=== PATIENT | female | born 1960 | race Caucasian/White ===

== ENCOUNTER 2016-07-03 00:20 | Emergency (ER) | payer MEDICARE, OTHER ==
[~2016-07-03] VITALS: Ht 157.5 cm; Wt 65.0 kg
[~2016-07-03 00:20] MED LIST: ABIL5TAB6 PO; BENZ2 PO; PAXI30TA7 PO
[2016-07-03 00:30] VITALS: BP 162/79; PULSE 107; RESP 20; TEMP 99.8; O2SAT 95
--- NOTE | 2016-07-03 01:40 | PD ---
HPI Chief Complaint: Abdominal Pain Time Seen by Provider: 01:32 Travel History International Travel<30 days: No Contact w/Intl Traveler<30days: No Traveled to known affect area: No History of Present Illness HPI 56-year-old female with history of schizoaffective disorder, comprehensive complaints of abdominal "fullness". Patient denies any true pain. She does state that she ate pizza from [address] and shortly thereafter had 3 large bowel movements. She denies any fevers, chills. She denies any dysuria, urgency, frequency. When asked if she's had anything like this before, patient reports that she had something similar 2 years ago. She states that they did lots of tests and discharge her home. Patient also reports tremors. She states when she had this pain 2 years ago she felt tremors then. She denies being sexually active. There are no other complaints time my examination. PFSH Past Medical History Anemia: Yes Anxiety: Yes Depression: Yes Cancer: No Cardiovascular Problems: No Diabetes: No Diminished Hearing: No Headaches: No Hypertension: Yes Implanted Vascular Access Dvce: No Psychiatric: Yes (Prior admissions in outpatient [place]. and HBS) Reproductive: Yes (HAS A LARGE UTERINE FIBROID) Immunizations Current: Yes Schizophrenia: Yes Seizures: No ?: Not Menopausal: Yes : 1 Miscarriage: 1 Past Surgical History Gynecologic Surgery: Yes (FIBROIDS REMOVED) Social History Alcohol Use: No Tobacco Use: No Substance Use: No Allergies-Medications (Allergen,Severity, Reaction): Coded Allergies: No Known Allergies (Unverified , 07/03/16) Per [facility] in [place], [place]. Reported Meds & Prescriptions Reported Meds & Active Scripts Active No Active Prescriptions or Reported Medications Review of Systems Except as stated in HPI: all other systems reviewed are Neg General / Constitutional: No: Fever, Chills HENT: No: Headaches, Lightheadedness Cardiovascular: No: Chest Pain or Discomfort Respiratory: No: Cough, Shortness of Breath Gastrointestinal: Positive: Nausea, Vomiting, Abdominal Pain (described as "full sensation".), No: Diarrhea Genitourinary: Positive: Urgency, Frequency, Dysuria Musculoskeletal: No: Weakness Neurologic: No: Weakness, Dizziness Psychiatric: No: Anxiety (denies), Depression (denies), Substance Abuse (denies ) Physical Exam Narrative GENERAL: Well-nourished, well-developed patient. SKIN: Warm and dry. HEAD: Normocephalic/atraumatic. EYES: No injection or drainage. NECK: Supple, trachea midline. No JVD or lymphadenopathy. CARDIOVASCULAR: Regular rate and rhythm without murmurs, gallops, or rubs. RESPIRATORY: Breath sounds equal bilaterally. No accessory muscle use. GASTROINTESTINAL: Abdomen soft, non-tender, nondistended. When asked where the discomfort was, she points to her mid abdomen. There was no pain elicited on palpation. She had no rebound or guarding. There are no pulsatile masses or abnormal findings on exam. MUSCULOSKELETAL: No cyanosis, or edema. NEUROLOGICAL: Awake and alert. Cranial nerves II through XII intact. Motor grossly within normal limits. Five out of 5 muscle strength in all muscle groups. Normal speech. The patient was tremulous however when engaged in conversation she would not shake. Data Data Last Documented VS Vital Signs Date Time Temp Pulse Resp B/P Pulse Ox O2 Delivery O2 Flow Rate FiO2 07/03/16 00:30 99.8 107 20 162/79 95 Orders Lorazepam Inj (Ativan Inj) (07/03/16 01:45) Complete Blood Count With Diff (07/03/16 01:34) Comprehensive Metabolic Panel (07/03/16 01:34) Lipase (07/03/16 01:34) Urinalysis - C+S If Indicated (07/03/16 01:34) Iv Access Insert/Monitor (07/03/16 01:34) Ecg Monitoring (07/03/16 01:34) Oximetry (07/03/16 01:34) Sodium Chloride 0.9% Flush (Ns Flush) (07/03/16 01:45) Dicyclomine Inj (Bentyl Inj) (07/03/16 01:45) Ct Abd/Pel W Iv Contrast(Rout) (07/03/16 02:31) Oral Contrast - Adult (07/03/16 02:39) Diatrizoate Liq ( Gastroview Liq) (07/03/16 03:11) Diatrizoate Liq ( Gastroalisha Liq) (07/03/16 03:11) Iohexol 350 Inj (Omnipaque 350 Inj) (07/03/16 04:12) Labs Laboratory Tests Test 07/03/16 01:00 White Blood Count 17.0 TH/MM3 Red Blood Count 4.46 MIL/MM3 Hemoglobin 13.0 GM/DL Hematocrit 38.2 % Mean Corpuscular Volume 85.5 FL Mean Corpuscular Hemoglobin 29.2 PG Mean Corpuscular Hemoglobin 34.1 % Concent Red Cell Distribution Width 13.4 % Platelet Count 318 TH/MM3 Mean Platelet Volume 7.6 FL Neutrophils (%) (Auto) 86.4 % Lymphocytes (%) (Auto) 5.7 % Monocytes (%) (Auto) 7.3 % Eosinophils (%) (Auto) 0.4 % Basophils (%) (Auto) 0.2 % Neutrophils # (Auto) 14.7 TH/MM3 Lymphocytes # (Auto) 1.0 TH/MM3 Monocytes # (Auto) 1.2 TH/MM3 Eosinophils # (Auto) 0.1 TH/MM3 Basophils # (Auto) 0.0 TH/MM3 CBC Comment DIFF FINAL Differential Comment Urine Color LIGHT-YELLOW Urine Turbidity CLEAR Urine pH 6.5 Urine Specific [place] 1.008 Urine Protein NEG mg/dL Urine Glucose (UA) NEG mg/dL Urine Ketones NEG mg/dL Urine Occult Blood NEG Urine Nitrite NEG Urine Bilirubin NEG Urine Urobilinogen LESS THAN 2.0 MG/DL Urine Leukocyte Esterase SMALL Urine RBC 1 /hpf Urine WBC 7 /hpf Urine Squamous Epithelial 1 /hpf Cells Urine Transitional Epithelial <1 /hpf Cells Urine Renal Epithelial Cells <1 /hpf Urine Mucus FEW /lpf Microscopic Urinalysis Comment CULT NOT INDICATED Sodium Level 137 MEQ/L Potassium Level 4.2 MEQ/L Chloride Level 102 MEQ/L Carbon Dioxide Level 26.1 MEQ/L Anion Gap 9 MEQ/L Blood Urea Nitrogen 23 MG/DL Creatinine 1.01 MG/DL Estimat Glomerular Filtration 57 ML/MIN Rate Random Glucose 106 MG/DL Calcium Level 8.8 MG/DL Total Bilirubin 0.3 MG/DL Aspartate Amino Transf 27 U/L (AST/SGOT) Alanine Aminotransferase 30 U/L (ALT/SGPT) Alkaline Phosphatase 83 U/L Total Protein 7.5 GM/DL Albumin 4.0 GM/DL Lipase 144 U/L MDM Medical Decision Making Medical Screen Exam Complete: Yes Emergency Medical Condition: Yes Medical Record Reviewed: Yes Interpretation(s) Last 24 hours Impressions Abdomen/Pelvis CT 07/03/16 0231 Signed Impressions: Service Date/Time: June 04:10 - CONCLUSION: 1. No evidence of acute abdominal or pelvic process. No masses are identified. 2. Massively enlarged fibroid uterus similar to the prior study 3. Bladder distention. 4. Small pericardial effusion 5. Constipation Roberto Carlos Judd MD Differential Diagnosis Foodborne illness versus pancreatitis versus diverticulitis Narrative Course 56-year-old female with history of schizoaffective disorder, presents today with complaints of abdominal pain. The patient had an elevated white blood cell count. CT scan shows an enlarged fibroid uterus. She has a small pericardial effusion. Urinalysis showed no evidence of UTI. There was also constipation noted. The findings were discussed the patient and she was instructed to follow up with a primary care physician for further evaluation of the pericardial effusion. She is also instructed she likely need to see a BUREAU DIRECTOR physician for her fibroid uterus. Diagnosis Primary Impression: Fibroid uterus Additional Impressions: small pericardial effusion Constipation Additional Instructions: Follow up with a primary care physician for your fibroid uterus and small pericardial effusion. Scripts No Active Prescriptions or Reported Meds Disposition: 01 DISCHARGE HOME Condition: Stable Angel Mary MD Jul 03, 2016 01:40
[2016-07-03] MEDS ORDERED: SODIUM CHLORIDE 0.9% FLUSH 5 ML FLUSH IVF PRN (01:45)
[2016-07-03] MEDS ORDERED: DICYCLOMINE HCL 20 MG/2 ML VIAL IM ONE (01:45)
[2016-07-03] MEDS ORDERED: LORazepam 2 MG/ML VIAL IV PUSH ONE (01:45)
[2016-07-03 01:58] LABS: AUTOMATED NEUTROPHIL # 14.7 TH/MM3 (1.8-7.7); BASOPHIL % 0.2 % (0.0-2.0); EOSINOPHIL # 0.1 TH/MM3 (0-0.4); EOSINOPHIL % 0.4 % (0.0-4.0); HEMATOCRIT 38.2 % (35.0-46.0); HEMO FLAGS DIFF FINAL; LYMPH % 5.7 % (9.0-44.0); MEAN CELL VOLUME 85.5 FL (80.0-100.0); MEAN CORPUSCULAR HEMOGLOBIN 29.2 PG (27.0-34.0); MEAN CORPUSCULAR HGB CONC 34.1 % (32.0-36.0); MONO % 7.3 % (0.0-8.0); NEUT % 86.4 % (16.0-70.0); PLATELET COUNT 318 TH/MM3 (150-450); RED BLOOD COUNT 4.46 MIL/MM3 (4.00-5.30); RED CELL DISTRIBUTION WIDTH 13.4 % (11.6-17.2)
[2016-07-03 02:08] LABS: BLOOD, URINE NEG (NEG); COMMENT (UR) CULT NOT INDICATED; CULTURE IF INDICATED CULT NOT INDICATED; GLUCOSE,URINE NEG (NEG); KETONE, URINE NEG (NEG); MUCUS URINE FEW /lpf (OCC); NITRITE,URINE NEG (NEG); PH, URINE 6.5 (5.0-8.5); RENAL EPITHELIAL CELLS <1 /hpf; SQUAMOUS EPITHELIAL CELL URINE 1 /hpf (0-5); TRANSITIONAL EPI CELLS, URINE <1 /hpf; URINE COLOR LIGHT-YELLOW (YELLW/STRAW)
[2016-07-03 02:13] LABS: ALT (GPT) 30 U/L (10-53); ANION GAP 9 MEQ/L (5-15); AST (GOT) 27 U/L (15-37); BICARBONATE 26.1 MEQ/L (21.0-32.0); BLOOD UREA NITROGEN 23 MG/DL (7-18); CHLORIDE 102 MEQ/L (98-107); GLOMERULAR FILTRATION RATE 57 ML/MIN (>89); POTASSIUM 4.2 MEQ/L (3.5-5.1); SODIUM (NA) 137 MEQ/L (136-145)
[2016-07-03 02:16] LABS: ALKALINE PHOSPHATASE 83 U/L (45-117); TOTAL BILIRUBIN ADULT 0.3 MG/DL (0.2-1.0)
[2016-07-03] MEDS ORDERED: DIATRIZOATE MEGLUM/DIATRIZOATE SOD 9 ML CUP ONE ×2 (03:11)
[2016-07-03] MEDS ORDERED: IOHEXOL 350 MG/ML 10 ML VIAL (for RAD DIAG) IV ONE (04:12)
--- NOTE | 2016-07-03 04:41 | RADRPT ---
EXAM DATE/TIME: 07/03/2016 04:10 [facility] COMPARISON: CT ABDOMEN & PELVIS W CONTRAST, December 01, 2013, 8:39. INDICATIONS : Abdomen pain with tremors. IV CONTRAST: 70 cc Omnipaque 350 (iohexol) IV ORAL CONTRAST: Prescribed oral contrast ingested. RADIATION DOSE: 6.85 CTDIvol (mGy) MEDICAL HISTORY : Fibroids SURGICAL HISTORY : None. ENCOUNTER: Initial ACUITY: 1 day PAIN SCALE: 5/10 LOCATION: Bilateral abdomen TECHNIQUE: Volumetric scanning of the abdomen and pelvis was performed. Using automated exposure control and ad justment of the mA and/or kV according to patient size, radiation dose was kept as low as reasonably achievable to obtain optimal diagnostic quality images. FINDINGS: Examination of the lung bases demonstrates no abnormality. No pleural fluid is identified. No pulmona ry nodules are present. The liver and spleen are free of focal defects. The gallbladder and pancreas demonstrate no abnormality. The adrenal glands are normal. The kidneys demonstrate no evidence of toma id renal mass or hydronephrosis. No free fluid or abdominal masses are identified. No para-aortic mulu nopathy is seen. There is a massively enlarged uterus with heterogeneous calcification characteristic of fibroids efraín uring 20 x 11.8 x 8.9 CM. There is a large amount of fecal material throughout the colon consistent w ith constipation. The bladder is distended unchanged from the prior study. CONCLUSION: 1. No evidence of acute abdominal or pelvic process. No masses are identified. 2. Massively enlarged fibroid uterus similar to the prior study 3. Bladder distention. 4. Small pericardial effusion 5. Constipation Roberto Carlos Judd MD on July 03, 2016 at 4:36 Board Certified Radiologist. This report was verified electronically.
[2016-07-03 05:00] VITALS: BP 142/87; PULSE 88; RESP 18; O2SAT 98
== END 2016-07-03 07:08 | disposition home or self-care (01) ==
LOC: NEPE 00:20
DX: D25.9 Leiomyoma of uterus, unspecified (principal); I31.3 Pericardial effusion (noninflammatory); K59.00 Constipation, unspecified; F25.9 Schizoaffective disorder, unspecified
CPT/HCPCS: 74177; 80053; 81001; 83690; 85025; 96372; 96374; 99284; J0500; J2060; Q9963; Q9967

== ENCOUNTER 2016-07-04 12:19 | Emergency (ER) | payer MEDICARE ==
[~2016-07-04] VITALS: Ht 167.6 cm; Wt 68.0 kg
[2016-07-04 12:22] VITALS: BP 156/85; PULSE 101; RESP 17; TEMP 97.9; O2SAT 95
== END 2016-07-04 14:59 | disposition left against medical advice (07) ==
LOC: NED 12:19
DX: R68.89 Other general symptoms and signs (principal)
CPT/HCPCS: 99281

== ENCOUNTER 2016-07-04 17:16 | Emergency (ER) | payer MEDICARE ==
[~2016-07-04] VITALS: Ht 167.6 cm; Wt 60.0 kg
[2016-07-04 17:18] VITALS: BP 185/103; PULSE 125; RESP 20; TEMP 98.8; O2SAT 95
--- NOTE | 2016-07-04 18:19 | PD ---
HPI Chief Complaint: GI Complaint Time Seen by Provider: 17:38 Travel History International Travel<30 days: No Contact w/Intl Traveler<30days: No Traveled to known affect area: No History of Present Illness HPI 56-year-old female complains of abdominal pain and extremity shaking. Patient has history of recurrent abdominal pain with extremity shaking. Patient has been seen in emergency room for this condition. Patient was seen in the emergency room 2 days ago and had blood tests done and CT scan abdomen done also. CBC showed leukocytosis. CT scan abdomen pelvis shows no evidence of acute abdomen pelvis process, Massively enlarged uterine fibroid unchanged from previous study, Bladder distention, Small pericardial effusion, Constipation. PFSH Past Medical History Anemia: Yes Anxiety: Yes Depression: Yes Cancer: No Cardiovascular Problems: No Diabetes: No Diminished Hearing: No Headaches: No Hypertension: Yes Implanted Vascular Access Dvce: No Psychiatric: Yes (Prior admissions in outpatient [place]. and HBS) Reproductive: Yes (HAS A LARGE UTERINE FIBROID) Immunizations Current: Yes Schizophrenia: Yes Seizures: No ?: Not Menopausal: Yes : 1 Miscarriage: 1 Past Surgical History Gynecologic Surgery: Yes (FIBROIDS REMOVED) Social History Alcohol Use: No Tobacco Use: No Substance Use: No Allergies-Medications (Allergen,Severity, Reaction): Coded Allergies: No Known Allergies (Unverified , 07/03/16) Per [facility] in [place], [place]. Reported Meds & Prescriptions Reported Meds & Active Scripts Active No Active Prescriptions or Reported Medications Review of Systems General / Constitutional: No: Fever Eyes: No: Visual changes HENT: No: Headaches Cardiovascular: No: Chest Pain or Discomfort Respiratory: No: Shortness of Breath Gastrointestinal: Positive: Abdominal Pain Genitourinary: No: Dysuria Musculoskeletal: No: Pain Skin: No Rash Neurologic: No: Weakness Psychiatric: No: Depression Endocrine: No: Polydipsia Hematologic/Lymphatic: No: Easy Bruising Physical Exam Narrative GENERAL: Well-nourished, well-developed patient. SKIN: Warm and dry. HEAD: Normocephalic. EYES: No scleral icterus. No injection or drainage. NECK: Supple, trachea midline. No JVD or lymphadenopathy. CARDIOVASCULAR: Regular rate and rhythm without murmurs, gallops, or rubs. RESPIRATORY: Breath sounds equal bilaterally. No accessory muscle use. GASTROINTESTINAL: Abdomen soft, nondistended. Mild diffuse tenderness over the abdomen. No rebound tenderness. MUSCULOSKELETAL: No cyanosis, or edema. BACK: Nontender without obvious deformity. No CVA tenderness. Neurologic exam: Patient's awake and with tremors of the extremity. Data Data Last Documented VS Vital Signs Date Time Temp Pulse Resp B/P Pulse Ox O2 Delivery O2 Flow Rate FiO2 07/04/16 17:18 98.8 125 20 185/103 95 Orders Complete Blood Count With Diff (07/04/16 17:49) Comprehensive Metabolic Panel (07/04/16 17:49) Lipase (07/04/16 17:49) Urinalysis - C+S If Indicated (07/04/16 17:49) Iv Access Insert/Monitor (07/04/16 17:49) Ecg Monitoring (07/04/16 17:49) Oximetry (07/04/16 17:49) Labs Laboratory Tests Test 07/04/16 18:19 White Blood Count 15.5 TH/MM3 Red Blood Count 4.42 MIL/MM3 Hemoglobin 12.8 GM/DL Hematocrit 37.8 % Mean Corpuscular Volume 85.6 FL Mean Corpuscular Hemoglobin 29.0 PG Mean Corpuscular Hemoglobin 33.9 % Concent Red Cell Distribution Width 13.8 % Platelet Count 314 TH/MM3 Mean Platelet Volume 7.8 FL Neutrophils (%) (Auto) 85.4 % Lymphocytes (%) (Auto) 8.4 % Monocytes (%) (Auto) 5.7 % Eosinophils (%) (Auto) 0.2 % Basophils (%) (Auto) 0.3 % Neutrophils # (Auto) 13.3 TH/MM3 Lymphocytes # (Auto) 1.3 TH/MM3 Monocytes # (Auto) 0.9 TH/MM3 Eosinophils # (Auto) 0.0 TH/MM3 Basophils # (Auto) 0.0 TH/MM3 CBC Comment DIFF FINAL Differential Comment Urine Color LIGHT-YELLOW Urine Turbidity CLEAR Urine pH 6.5 Urine Specific [place] 1.010 Urine Protein NEG mg/dL Urine Glucose (UA) NEG mg/dL Urine Ketones NEG mg/dL Urine Occult Blood TRACE Urine Nitrite NEG Urine Bilirubin NEG Urine Urobilinogen LESS THAN 2.0 MG/DL Urine Leukocyte Esterase NEG Urine RBC 1 /hpf Urine WBC LESS THAN 1 /hpf Microscopic Urinalysis Comment CULT NOT INDICATED MDM Medical Decision Making Medical Screen Exam Complete: Yes Emergency Medical Condition: Yes Medical Record Reviewed: Yes Differential Diagnosis Fracture diagnosis including recurrent abdominal pain, uterine fibroid, urinary retention. Narrative Course 56-year-old female with recurrent abdominal pain and recurrent bladder distention. History of uterine fibroid. Scripts No Active Prescriptions or Reported Meds Norbert Hayes MD Jul 04, 2016 18:19
[2016-07-04 18:51] LABS: BLOOD, URINE TRACE (NEG); GLUCOSE,URINE NEG (NEG); KETONE, URINE NEG (NEG); NITRITE,URINE NEG (NEG); PH, URINE 6.5 (5.0-8.5); URINE COLOR LIGHT-YELLOW (YELLW/STRAW)
[2016-07-04 18:54] LABS: AUTOMATED NEUTROPHIL # 13.3 TH/MM3 (1.8-7.7); BASOPHIL % 0.3 % (0.0-2.0); COMMENT (UR) CULT NOT INDICATED; CULTURE IF INDICATED CULT NOT INDICATED; EOSINOPHIL % 0.2 % (0.0-4.0); HEMATOCRIT 37.8 % (35.0-46.0); HEMO FLAGS DIFF FINAL; LYMPH % 8.4 % (9.0-44.0); LYMPHOCYTE # 1.3 TH/MM3 (1.0-4.8); MEAN CELL VOLUME 85.6 FL (80.0-100.0); MEAN CORPUSCULAR HGB CONC 33.9 % (32.0-36.0); MONO % 5.7 % (0.0-8.0); NEUT % 85.4 % (16.0-70.0); PLATELET COUNT 314 TH/MM3 (150-450); RED BLOOD COUNT 4.42 MIL/MM3 (4.00-5.30); RED CELL DISTRIBUTION WIDTH 13.8 % (11.6-17.2); WHITE BLOOD COUNT 15.5 TH/MM3 (4.0-11.0)
[2016-07-04 19:07] LABS: ANION GAP 10 MEQ/L (5-15); AST (GOT) 24 U/L (15-37); BICARBONATE 25.8 MEQ/L (21.0-32.0); BLOOD UREA NITROGEN 17 MG/DL (7-18); CHLORIDE 97 MEQ/L (98-107); GLOMERULAR FILTRATION RATE 62 ML/MIN (>89); SODIUM (NA) 133 MEQ/L (136-145)
[2016-07-04 19:09] VITALS: BP 138/94; PULSE 110; RESP 16; O2SAT 99
[2016-07-04 19:11] LABS: ALKALINE PHOSPHATASE 77 U/L (45-117); ALT (GPT) 31 U/L (10-53); TOTAL BILIRUBIN ADULT 0.3 MG/DL (0.2-1.0)
--- NOTE | 2016-07-04 19:50 | PD ---
Physical Exam Date Seen by Provider: Jul 04, 2016 Narrative Care assumed from Dr. Hayes at 1900 pending a call back from gynecology. She has a uterine fibroid which is pressing on her bladder. Data Data Last Documented VS Vital Signs Date Time Temp Pulse Resp B/P Pulse Ox O2 Delivery O2 Flow Rate FiO2 07/04/16 20:30 95 07/04/16 20:17 98.0 16 129/83 100 Room Air Orders Complete Blood Count With Diff (07/04/16 17:49) Comprehensive Metabolic Panel (07/04/16 17:49) Lipase (07/04/16 17:49) Urinalysis - C+S If Indicated (07/04/16 17:49) Iv Access Insert/Monitor (07/04/16 17:49) Ecg Monitoring (07/04/16 17:49) Oximetry (07/04/16 17:49) Morphine Inj (Morphine Inj) (07/04/16 20:00) Ondansetron Inj (Zofran Inj) (07/04/16 20:00) Lorazepam Inj (Ativan Inj) (07/04/16 21:15) Bladder Scan PRN (07/04/16 22:00) Urinary Catheter Insert/Apply (07/04/16 22:43) Labs Laboratory Tests Test 07/04/16 18:19 White Blood Count 15.5 TH/MM3 Red Blood Count 4.42 MIL/MM3 Hemoglobin 12.8 GM/DL Hematocrit 37.8 % Mean Corpuscular Volume 85.6 FL Mean Corpuscular Hemoglobin 29.0 PG Mean Corpuscular Hemoglobin 33.9 % Concent Red Cell Distribution Width 13.8 % Platelet Count 314 TH/MM3 Mean Platelet Volume 7.8 FL Neutrophils (%) (Auto) 85.4 % Lymphocytes (%) (Auto) 8.4 % Monocytes (%) (Auto) 5.7 % Eosinophils (%) (Auto) 0.2 % Basophils (%) (Auto) 0.3 % Neutrophils # (Auto) 13.3 TH/MM3 Lymphocytes # (Auto) 1.3 TH/MM3 Monocytes # (Auto) 0.9 TH/MM3 Eosinophils # (Auto) 0.0 TH/MM3 Basophils # (Auto) 0.0 TH/MM3 CBC Comment DIFF FINAL Differential Comment Urine Color LIGHT-YELLOW Urine Turbidity CLEAR Urine pH 6.5 Urine Specific [place] 1.010 Urine Protein NEG mg/dL Urine Glucose (UA) NEG mg/dL Urine Ketones NEG mg/dL Urine Occult Blood TRACE Urine Nitrite NEG Urine Bilirubin NEG Urine Urobilinogen LESS THAN 2.0 MG/DL Urine Leukocyte Esterase NEG Urine RBC 1 /hpf Urine WBC LESS THAN 1 /hpf Microscopic Urinalysis Comment CULT NOT INDICATED Sodium Level 133 MEQ/L Potassium Level 4.0 MEQ/L Chloride Level 97 MEQ/L Carbon Dioxide Level 25.8 MEQ/L Anion Gap 10 MEQ/L Blood Urea Nitrogen 17 MG/DL Creatinine 0.94 MG/DL Estimat Glomerular Filtration 62 ML/MIN Rate Random Glucose 90 MG/DL Calcium Level 8.9 MG/DL Total Bilirubin 0.3 MG/DL Aspartate Amino Transf 24 U/L (AST/SGOT) Alanine Aminotransferase 31 U/L (ALT/SGPT) Alkaline Phosphatase 77 U/L Total Protein 7.6 GM/DL Albumin 4.0 GM/DL Lipase 108 U/L MDM Supervised Visit with NESTOR: No Narrative Course Spoke with Dr. Monet, brush machine setter, who recommended that I speak with the OB hospitalist aboriginal liaison officer. I then spoke with Dr. Zhang who instructed me to consult with the residents. The residents are capped for the day. I now have a call out to Dr. Mills. Dr. Mills asked that I contact Dr. Zhang again. In the meantime, we checked a residual urine and it was >500. Dr. Zhang has now seen the patient. She does not feel that the urinary retention is due to the fibroid. We will place a Chapa catheter and have her follow up with urology as an outpatient. Diagnosis Primary Impression: Uterine fibroid Qualified Code: D25.9 - Uterine leiomyoma, unspecified location Additional Impression: Urinary retention Referrals: Ronald Eden MD Patient Instructions: Acute Urinary Retention in Women (ED), General Instructions Scripts No Active Prescriptions or Reported Meds Disposition: DISCHARGE HOME Condition: Stable Ree Butler MD Jul 04, 2016 19:50
[2016-07-04] MEDS ORDERED: MORPHINE SULFATE 4 MG/ML INJ IV PUSH ONE (20:00)
[2016-07-04] MEDS ORDERED: ONDANSETRON HCL 4 MG/2 ML VIAL IV PUSH ONE (20:00)
[2016-07-04 20:17] VITALS: BP 129/83; PULSE 114; RESP 16; TEMP 98; O2SAT 100
[2016-07-04 20:30] VITALS: PULSE 95
[2016-07-04] MEDS ORDERED: LORazepam 2 MG/ML VIAL IV PUSH ONE (21:15)
[2016-07-04 22:30] VITALS: BP 172/97; PULSE 83; RESP 16; O2SAT 100
--- NOTE | 2016-07-05 06:35 | MB ---
cc: AUDELIA POPE M.D. DATE OF CONSULTATION: 07/04/2016 REASON FOR CONSULTATION: 1. Uterine fibroid. 2. Urinary retention. HISTORY OF PRESENT ILLNESS: The patient is a 56 year-old female who complains of difficulty with urinating. She states that she had always had frequency and always had a feeling that she was not completely emptying her bladder since approximately 2011. She three days ago began to have issues with starting her stream and acutely today was unable to initiate the scream at all and came to the emergency room. She does have tremors and shaking and she has been seen in the past for this. The patient initially has large uterine fibroids measuring approximately 20 x 10 cm, that she states has been present since she was 39 years old. They have been asymptomatic. They do not cause her any pelvic pain. She has not had any bleeding since she was 41 years old and has been menopausal for the past 15 years. She states that she has had a resection of the uterine fibroids in her 30's but no additional surgery has been done as her symptoms abated. She denies any vaginal bleeding since menopause. She has been to the emergency room on many occasions for varying symptoms with repetitive imaging on CT scan that notes these uterine fibroids. PAST MEDICAL HISTORY: 1. Schizophrenia. 2. Anxiety. PAST SURGICAL HISTORY: Resection of uterine fibroids. SOCIAL HISTORY: The patient is intermittently homeless, denies use of alcohol, tobacco, denies use of drugs. ALLERGIES NO KNOWN DRUG ALLERGIES MEDICATIONS The patient is on no medications. PHYSICAL EXAMINATION: IN GENERAL: The patient has upper extremity tremors but knows where she is and knows why she is here. CHEST: Clear to auscultation. ABDOMEN: Palpable uterine fibroids approximately up to the umbilicus, no pain with palpation. GYNECOLOGY External genitalia was normal, No vaginal discharge, no vaginal bleeding is seen. Normal rugation, somewhat of an atropic affect is noted. Cervix is palpable in the midline, the bladder is distended, the uterine fibroids are not in the pelvis, they are in the abdomen and approximately up to the umbilicus. There is no discreet single fibroid in the pelvic area that could be obstructing the ureter. DATA: Labs show white blood cell count of 15.5. Hematocrit of 37.8. Urinalysis was essentially normal. The patient has a had a CT of the abdomen and pelvis most recently in 2016 that showed an enlarged uterus, measuring 20 x 11.8 x 8.9 cm's. The bladder is distended but is unchanged from the prior study. I looked into the CT scans from 2013 and 2014 which show approximately the same size uterine fibroid and also showed some distention of the bladder as well. ASSESSMENT: 1. Uterine fibroids, the patient is asymptomatic, although they are large there is no obvious obstruction, they are not large enough to cause an obstruction, there is no discreet tumor in the pelvis which is impinging upon the urethra. 2. Most likely neurogenic bladder, apparently since 2014, however, symptoms have increased over the past three days. No obvious medications that could be causing her symptoms. RECOMMENDATIONS: Follow up with [facility] as an outpatient if she desires to seek out treatment for the uterine fibroids. The patient is asymptomatic essentially from the uterine fibroids and is post menopausal and not bleeding and so I do not think that it is necessary to intervene surgically at this time. Thank you for allowing me to consult on this patient. MD OFELIA Ayala/alin /11:01 PM /6:14 AM
== END 2016-07-05 00:23 | disposition home or self-care (01) ==
LOC: NEPC 17:16
DX: D25.9 Leiomyoma of uterus, unspecified (principal); R33.9 Retention of urine, unspecified; I10 Essential (primary) hypertension
CPT/HCPCS: 80053; 81001; 83690; 85025; 96374; 96375; 99284; J2060; J2270; J2405